=== PATIENT | male | born 1965 | race Caucasian/White ===

== ENCOUNTER 2025-04-09 10:58 | Inpatient (IN) ==
--- NOTE | 2025-04-09 11:22 | ED Physician Documentation ---
History of Present Illness Stated complaint Stated Complaint: HYPOTENTION Chief complaint Chief Complaint: Fever Additonal information Additional information: Patient is a 60-year-old male with history of HIV well-controlled on medication, hypertension, who presents to the ER due to fever and hypotension. Patient was diagnosed with epididymitis on the of this month, 6 days ago, and has been recovering well on Bactrim. He states that his testicular symptoms have gotten significantly better. However, yesterday he developed fever without other overt signs of infection. He was seen at urgent care this morning and was found to have a temperature of 104, and recommended to come to the ER for evaluation. He denies any headache, visual changes, cough, sore throat, denies any chest pain, chest pressure, shortness of breath, he denies any urination changes. He does endorse diarrhea over the last couple weeks, states that it is not bloody or dark. Was noted to have a systolic pressure in the upper 80s with diastolics in the upper 50s, at urgent care. This is consistent with what EMS found as well during transit. Review of Systems Status of ROS: See HPI Meds/Allgy Home Medications Ambulatory Orders Medication Instructions Recorded Confirmed hydrochlorothiazide 25 mg tablet 25 mg PO QAM 04/03/25 04/09/25 lisinopril 20 mg tablet 20 mg PO QDAY 04/03/2504/09 sulfamethoxazole 800 1 tab PO BID 10 days #20 tab s 04/03/25 04/09/25 mg-trimethoprim 160 mg tablet (Bactrim DS) amlodipine 10 mg tablet 10 mg PO QPM 04/09/25 ascorbic acid (vitamin C) 1,000 mg 1,000 mg PO DAILY 1 06/09/24 04/09/25 capsule atorvastatin 20 mg tablet 20 mg PO HS 04/09/25 5 bictegravir 50 mg-emtricitabine 1 tab PO QAM 04/09/25 04/09/25 200 mg-tenofovir alafenam 25 mg tablet (Biktarvy) chlorthalidone 12.5 mg tablet 12.5 mg PO QAM 04/09/25 04/09/25 (Hemiclor) darunavir 800 mg tablet 800 mg PO QAM 04/09/2504/09 doxazosin 2 mg tablet (Cardura) 2 mg PO QPM 04/09/25 1 06/09/24 famotidine 20 mg tablet 20 mg PO QAM AND QPM 5 04/09/25 furosemide 20 mg tablet 20 mg PO QAM 04/09/25 metoprolol succinate 50 mg capsule 100 mg PO QPM 04/0904/09/25 sprinkle, ext. release 24 hr metronidazole 0.75 % topical cream 1 applic topical BI D 04/09/25 04/09/25 multivitamin 1 tab PO DAILY 04/09/2503/16 Allergies Allergies Allergy/AdvReac Type Severity Reaction Status Date / Time No Known Drug Allergies Allergy Verified 04/09/25 11:00 [facility] Active Problems All Active Problems (Updated 04/09/25 @ 13:02 by Leobardo Wiggins DO) MIKE (acute kidney injury) (Acute) Hyperlipidemia (Chronic) Hypertension (Chronic) Sepsis (Acute) Epididymo-orchitis, acute (Acute) HIV (human immunodeficiency virus infection) (Chronic) Fever (Acute) Testicular swelling, right (Acute) Social History Social History Smoking Status: Never smoker Second hand tobacco smoke exposure: No Do you dip or chew tobacco?: No Do you vape?: No Living arrangement: At home Level: Independent Do you feel safe in your home environment?: Yes History of physical, verbal, emotional, or financial abuse?: No Substance Use: denies use POLST Patient has POLST: No Exam Exam Vital Signs: Vital Signs x48h Temp Pulse Resp BP Pulse Ox 04/09/25 12:15 76 17 115/63 96 04/09/25 11:25 73 17 97 04/09/25 11:05 17 04/09/25 11:00 37.0 C 74 22 88/53 L 99 Constitutional no apparent distress Resting comfortably, no acute distress. Nontoxic. HENMT normocephalic Eyes PERRL and conjunctivae normal Neck/C-Spine cervical full ROM noted, supple and no meningeal signs Respiratory breath sounds equal bilaterally, normal respiratory effort, clear to auscultation bilaterally and no wheezes No accessorry muscle use. Satting at 97% on RA. LCTAB. Cardiovascular normal heart rate noted, regular rhythm noted, no murmur and peripheral pulses 2+ throughout Gastrointestinal abdomen soft to palpation and nontender to palpation Genitourinary no CVA tenderness Back/Pelvis no thoracic spine tenderness and no lumbar spine tenderness Extremities normal to inspection Neurology log sorter II-XII intact, no movement abnormality noted, no focal motor deficit noted, no sensory deficits noted and GCS 15 Psychiatry mental status grossly normal and oriented x3 Skin skin color normal, no rash, no jaundice and no mottling Results Vitals Vitals: Vital Signs - 24 hr 04/09/25 11:00 04/09/25 11:05 04/09/25 11:25 Temperature 37.0 C Temperature Source Oral Pulse Rate 74 73 Respiratory Rate 22 17 17 Blood Pressure 88/53 L O2 Saturation 99 97 O2 Source Room air Room air Room air Pain Intensity 0 0 17 04/09/25 12:15 Temperature Temperature Source Pulse Rate 76 Respiratory Rate 17 Blood Pressure 115/63 O2 Saturation 96 O2 Source Room air Pain Intensity 0 Oxygen O2 Source Room air Labs Labs: Laboratory Tests 04/09/25 04/09/25 04/09/25 11:20 11:34 11:41 WBC 8.5 RBC 3.97 L Hgb 12.4 L Hct 38.4 L MCV 96.7 H MCH 31.2 H MCHC 32.3 RDW 12.9 Plt Count 176 MPV 9.6 Neut # (Auto) Not Reportable Lymph # (Auto) Not Reportable Garvin # (Auto) Not Reportable Eos # (Auto) Not Reportable Baso # (Auto) Not Reportable Absolute Nucleated RBC Not Reportable Total Counted 100 Band Neuts % (Manual) 15 H Abnorm Lymph % (Manual) 0 Metamyelocytes % 2 H Myelocytes % 1 H Nucleated RBC % Not Reportable Neutrophils # (Manual) 7.7 H Lymphocytes # (Manual) 0.3 L Monocytes # (Manual) 0.1 Eosinophils # (Manual) 0.3 Basophils # (Manual) 0.0 Differential Comment MANUAL DIFFERENTIAL WBC Morphology NORMAL APPEARANCE Platelet Estimate NORMAL (130-450,000) Platelet Morphology NORMAL APPEARANCE RBC Morph Micro Appear NORMAL APPEARANCE Sodium 131 L Potassium 4.8 H Chloride 104 Carbon Dioxide 20 L Anion Gap 7.0 BUN 39 H Creatinine 3.5 H Estimated GFR (MDRD) 18 L Glucose 108 H Lactic Acid 0.9 Calcium 8.1 L Total Bilirubin 0.4 AST 17 ALT 27 Alkaline Phosphatase 69 Troponin I High Sens 6.5 Total Protein 6.2 L Albumin 3.5 Globulin 2.7 Albumin/Globulin Ratio 1.3 Procalcitonin Immunoas 0.72 H Urine Color Urine Clarity Urine pH Ur Specific Wheeler Urine Protein Urine Glucose (UA) Urine Ketones Urine Occult Blood Urine Nitrite Urine Bilirubin Urine Urobilinogen Ur Leukocyte Esterase Ur Microscopic Review Urine Culture Comments U Random Total Protein Urine Creatinine Urine Sodium Nasal Adenovirus (PCR) NOT DETECTED Nasal B. parapertussis DNA (PCR) NOT DETECTED Nasal Coronavir 229E PCR NOT DETECTED Nasal Coronavir HKU1 PCR NOT DETECTED Nasal Coronavir NL63 PCR NOT DETECTED Nasal Coronavir OC43 PCR NOT DETECTED Nasal Enterovir/Rhinovir PCR NOT DETECTED Nasal Influenza B PCR NOT DETECTED Nasal Influenza A PCR NOT DETECTED Nasal Parainfluen 1 PCR NOT DETECTED Nasal Parainfluen 2 PCR NOT DETECTED Nasal Parainfluen 3 PCR NOT DETECTED Nasal Parainfluen 4 PCR NOT DETECTED Nasal RSV (PCR) NOT DETECTED Nasal B.pertussis DNA PCR NOT DETECTED Nasal C.pneumoniae (PCR) NOT DETECTED Greg Human Metapneumo PCR NOT DETECTED Nasal M.pneumoniae (PCR) NOT DETECTED Nasal SARS-CoV-2 (PCR) NOT DETECTED 04/09/25 12:07 WBC RBC Hgb Hct MCV MCH MCHC RDW Plt Count MPV Neut # (Auto) Lymph # (Auto) Garvin # (Auto) Eos # (Auto) Baso # (Auto) Absolute Nucleated RBC Total Counted Band Neuts % (Manual) Abnorm Lymph % (Manual) Metamyelocytes % Myelocytes % Nucleated RBC % Neutrophils # (Manual) Lymphocytes # (Manual) Monocytes # (Manual) Eosinophils # (Manual) Basophils # (Manual) Differential Comment WBC Morphology Platelet Estimate Platelet Morphology RBC Morph Micro Appear Sodium Potassium Chloride Carbon Dioxide Anion Gap BUN Creatinine Estimated GFR (MDRD) Glucose Lactic Acid Calcium Total Bilirubin AST ALT Alkaline Phosphatase Troponin I High Sens Total Protein Albumin Globulin Albumin/Globulin Ratio Procalcitonin Immunoas Urine Color YELLOW Urine Clarity CLEAR Urine pH 6.0 Ur Specific Wheeler 1.020 Urine Protein TRACE Urine Glucose (UA) NEGATIVE Urine Ketones NEGATIVE Urine Occult Blood NEGATIVE Urine Nitrite NEGATIVE Urine Bilirubin NEGATIVE Urine Urobilinogen 0.2 (NORMAL) Ur Leukocyte Esterase NEGATIVE Ur Microscopic Review NOT INDICATED Urine Culture Comments NOT INDICATED U Random Total Protein 36 Urine Creatinine 99.8 Urine Sodium 74.5 Nasal Adenovirus (PCR) Nasal B. parapertussis DNA (PCR) Nasal Coronavir 229E PCR Nasal Coronavir HKU1 PCR Nasal Coronavir NL63 PCR Nasal Coronavir OC43 PCR Nasal Enterovir/Rhinovir PCR Nasal Influenza B PCR Nasal Influenza A PCR Nasal Parainfluen 1 PCR Nasal Parainfluen 2 PCR Nasal Parainfluen 3 PCR Nasal Parainfluen 4 PCR Nasal RSV (PCR) Nasal B.pertussis DNA PCR Nasal C.pneumoniae (PCR) Greg Human Metapneumo PCR Nasal M.pneumoniae (PCR) Nasal SARS-CoV-2 (PCR) PD Medical Decision Making ED course ED course: Assessment: Patient is a 60 year old male with history of HIV on triple therapy who presents with fever, low blood pressure. Was diagnosed with epididymitis last week and started on Bactrim. He was seen this morning due to fever at urgent care who recommended he come to the ER for evaluation. On arrival e has a blood pressure of mid 80s over upper 50s. Afebrile after taking Tylenol this morning. He denies any other symptoms of concern. Differential: Includes but is not limited to, sepsis, septic shock, UTI, STI, uro sepsis, pneumonia, viral gastrointestinal illness, colitis, bacteremia, etcetera. Workup: CBC that demonstrates mild anemia with a hemoglobin of 12.4. CMP with the sodium of 131, potassium 4.8. BUN of 39. Creatinine is markedly elevated to 3.5 from previous of 1.6. Respiratory panel, urinalysis, and Clostridium difficile testing unremarkable. Chest X-ray shows no acute cardio pulmonary process. EKG per my read: sinus rhythm, regular intervals, normal access, no malignant ST segment changes. Treatment: cefepime, 2 liters IV fluids Discussion: Patient s symptoms are consistent with sepsis versus septic shock, likely septic shock, given his hypotension on arrival. Unclear at this time what is driving his infection. Infectious workup so far unremarkable. He does not have a corresponding white count. However, I don't have a compelling reason yet for his fever. Blood cultures were pending by the time this patient left the ER. Most notably however is his significantly elevated creatinine. He did have good response to two liters of IV fluids, and afterward maintained normal blood pressures while in the ED. Apart from his recent epididymitis, patient denies any other symptoms of illness apart from the fever. I discussed this presentation with hospitalist who will admit him to the hospital for further workup and management. Discharge Plan Discharge Patient Disposition: 64 [facility] DC/Xfer Condition: Good Clinical Impression: Sepsis Interventions: ED Admission Assessment Last Done: 04/09/25 12:23 Vitals documented within 30 minutes of discharge?: Yes
[2025-04-09 11:57] LABS: HCT - HEMATOCRIT 38.4 % (42.0-52.0); HGB - HEMOGLOBIN 12.4 g/dL (14.0-18.0); MEAN PLATELET VOLUME 9.6 fL (7.4-11.4); PLT - PLATELET COUNT 176 10^3/uL (130-450); RED CELL DISTRIBUTION WIDTH 12.9 % (12.0-15.0)
[2025-04-09 11:58] LABS: ABNORMAL LYMPHS % (MANUAL) 0 %; BASOPHILS # (MANUAL) 0.0 10^3/uL (0-0.1)
[2025-04-09 12:07] LABS: ALT ALANINE AMINOTRANSFERASE 27.0 IU/L (10-60); AST ASPARTATE AMINOTRANSFERASE 17.0 IU/L (10-42); BUN - BLOOD UREA NITROGEN 39.0 mg/dL (6-20); CARBON DIOXIDE - CO2 20.0 mmol/L (21-32); CREATININE 3.5 mg/dL (0.6-1.3); GFR - MDRD 18.0 (>89)
[2025-04-09 12:16] LABS: OCCULT BLOOD,URINE NEGATIVE (NEGATIVE)
[2025-04-09 12:17] LABS: GLUCOSE, URINE (UA) NEGATIVE (NEGATIVE); KETONES,URINE (UA) NEGATIVE (NEGATIVE)
[2025-04-09 12:21] LABS: BAND NEUTROPHILS % (MANUAL) 15 %; EOSINOPHILS # (MANUAL) 0.3 10^3/uL (0-0.7); LYMPHOCYTES # (MANUAL) 0.3 10^3/uL (1.5-3.5); LYMPHOCYTES % (MANUAL) 3 %; METAMYELOCYTES % (MANUAL) 2 %; MONOCYTES # (MANUAL) 0.1 10^3/uL (0.0-1.0); MYELOCYTES % (MANUAL) 1 %; NEUTROPHILS # (MANUAL) 7.7 10^3/uL (1.5-6.6)
[2025-04-09] MEDS ORDERED: CEFEPIME 2 GM in SODIUM CHLORIDE 0.9% MINIBAG 100 ML IV STA (12:21)
[2025-04-09 12:22] LABS: PLATELET ESTIMATE, MANUAL NORMAL (130-450,000) (NORMAL); PLATELET MORPHOLOGY NORMAL APPEARANCE (NORMAL); RBC MORPHOLOGY (MULTIPLE) NORMAL APPEARANCE (NORMAL); WBC MORPHOLOGY (MULTIPLE) NORMAL APPEARANCE (NORMAL)
--- NOTE | 2025-04-09 12:23 | XRAY Report ---
PROCEDURE: XR Chest 1V INDICATIONS: potential pna TECHNIQUE: One view of the chest was acquired. COMPARISON: None. FINDINGS: Surgical changes and devices: None. Lungs and pleura: No pleural effusions or pneumothorax. No consolidation. Mediastinum: Mediastinal contours appear normal. Heart size is normal. Bones and chest wall: No suspicious bony lesions. Overlying soft tissues appear unremarkable. IMPRESSION: No acute cardiopulmonary process. Reviewed by: Ugo Leonard MD on 04/09/2025 12:19 PM PST Approved by: Ugo Leonard MD on 04/09/2025 12:19 PM PST Station ID: [id number]
[2025-04-09 12:26] LABS: B. PARAPERTUSSIS- RESP PCR PAN NOT DETECTED; B. PERTUSSIS- RESP PCR PANEL NOT DETECTED; C. PNEUMONIAE- RESP PCR PANEL NOT DETECTED; CORONAVIRUS 229E-RESP PCR NOT DETECTED; CORONAVIRUS HKU1-RESP PCR NOT DETECTED; CORONAVIRUS NL63-RESP PCR NOT DETECTED; CORONAVIRUS OC43-RESP PCR NOT DETECTED; HUMAN METAPNEUMOVIRUS NOT DETECTED; INFLUENZA A- RESP PCR PANEL NOT DETECTED; INFLUENZA B - RESP PCR PANEL NOT DETECTED; M. PNEUMONIAE- RESP PCR PANEL NOT DETECTED; PARAINFLUENZA VIRUS 1 NOT DETECTED; PARAINFLUENZA VIRUS 2 NOT DETECTED; PARAINFLUENZA VIRUS 4 NOT DETECTED; RHINOVIRUS/ENTEROVIRUS NOT DETECTED; RSV- RESP PCR PANEL NOT DETECTED; SARS-CoV-2 -RESP PCR PANEL NOT DETECTED
[2025-04-09] MEDS: CEFEPIME 2 GM VIAL IVP STA (12:41)
--- NOTE | 2025-04-09 12:47 | HISTORY & PHYSICAL EXAMINATION ---
Chief Complaint Chief Complaint Chief Complaint: Fever History of Present Illness Admitted From Admitted From:: ED History Obtained From Records Reviewed: [facility] History obtained from: EMR, Patient, ED Provider History of Present Illness HPI Comment/Other: The patient is a 60-year-old male with past medical history notable for HIV on HAART, HTN, HLD who presented with fever on antibiotics and hypotension. He was initially diagnosed with or orchio-epididymitis on 04/03 at urgent care. He was treated with IM Rocephin, returned and was transition to Bactrim. He states his symptoms have gotten significantly better. Specifically he had swelling in his left testicle that is improved. Throughout this time, he has been having intermittent low-grade fevers. Worse on the day prior to admission. He recorded a fever at home up to 104. He did have an episode of diarrhea on the day of admission. He endorses rigors, the most recent on 04/08. Shaking chills at home. Otherwise denies chest pain, dyspnea, abdominal pain, nausea or vomiting. In the ED, he presented initially with a blood pressure of 80/53. Not tachycardic. He reports that he did take his blood pressure medicines on the day of admission. He was found to have a notably normal white count, down from 18.7 on 04/03. He does have a left shift with 15% bands. Potassium 4.8, creatinine presumably normal at baseline was 1.6 on 04/03, increased 3.5. BUN 39. PCL 0.72. BG 108. Viral respiratory panel was negative. Urinalysis not suggestive of infection. Patient has not given much thought to his CODE STATUS previously. He is never filled out a POLST form. He does think that he would elect for pursuing resuscitative efforts if his heart were to stop. He is full code full treatment, but wishes to further consider. His surrogate decision maker is his Preston, Preston's numbers in the chart. Preston is also his legal surrogate decision maker by [place] state law. Meds/Allgy Home Medications Ambulatory Orders Medication Instructions Recorded Confirmed atorvastatin 40 mg tablet (Lipitor) 40 mg PO QDAY 03/1604/09/25 hydrochlorothiazide 25 mg tablet 25 mg PO QAM 04/03/25 04/09/25 lisinopril 20 mg tablet 20 mg PO QDAY 04/03/2504/09 sulfamethoxazole 800 1 tab PO BID 10 days #20 tab s 04/03/25 04/09/25 mg-trimethoprim 160 mg tablet (Bactrim DS) bictegravir 50 mg-emtricitabine 1 tab PO QDAY 04/09/25 04/09/25 200 mg-tenofovir alafenam 25 mg tablet (Biktarvy) chlorthalidone 12.5 mg tablet 12.5 mg PO QDAY 04/09/25 04/09/25 (Hemiclor) darunavir 800 mg tablet 800 mg PO QDAY 04/09/2503/16 doxazosin 2 mg tablet (Cardura) 2 mg PO QDAY 04/09/25 04/09/25 famotidine 20 mg tablet 20 mg PO QDAY 04/09/2504/09 metoprolol succinate 50 mg capsule 50 mg PO QDAY 04/0904/09/25 sprinkle, ext. release 24 hr Allergies Allergies Allergy/AdvReac Type Severity Reaction Status Date / Time No Known Drug Allergies Allergy Verified 04/09/25 11:00 PFSH Active Problems All Active Problems (Updated 04/09/25 @ 13:02 by Leobardo Wiggins DO) MIKE (acute kidney injury) (Acute) Hyperlipidemia (Chronic) Hypertension (Chronic) Sepsis (Acute) Epididymo-orchitis, acute (Acute) HIV (human immunodeficiency virus infection) (Chronic) Fever (Acute) Testicular swelling, right (Acute) Social History Social History Smoking Status: Never smoker Second hand tobacco smoke exposure: No Do you dip or chew tobacco?: No Do you vape?: No Living arrangement: At home Level: Independent Do you feel safe in your home environment?: Yes History of physical, verbal, emotional, or financial abuse?: No Substance Use: denies use POLST Patient has POLST: No POLST CPR Status: Attempt Resuscitation (CPR) Level of Medical Intervention: Full Treatment Review of Systems Status of ROS: 10 or more systems reviewed and unremarkable except as noted in history and below Exam Exam Vital Signs: Vital Signs x48h Temp Pulse Resp BP Pulse Ox 04/09/25 12:36 77 20 109/55 L 97 04/09/25 12:23 17 04/09/25 12:15 76 17 115/63 96 04/09/25 11:25 73 17 97 04/09/25 11:05 17 04/09/25 11:00 37.0 C 74 22 88/53 L 99 GEN: No acute distress HEENT: NC/AT, normal appearance of external ears and nose. Hearing baseline. Cardiac: Regular rate and rhythm, no murmurs. Generally euvolemic on exam. Pulm: Lungs CTA bilaterally, no cough, no wheezes. No adventitial lung sounds. Normal effort on room air. Abdomen: Obese, soft, nontender, nondistended. No rebound or guarding Extremities: Moves all 4 extremities equally. Normal tone. Neuro: Face symmetric, CN II through XII intact grossly. Speech fluent. Moves all extremities. No focal deficits. Psych: Mood euthymic. Affect congruent. Reasonable historian. Sepsis Event Note (H) Evaluation Current Stage of Sepsis: Severe sepsis Possible source of Sepsis: positive Genitourinary Sepsis Criteria Sepsis Criteria: Recorded Temperature greater than 38.3C or Less than 36C, WBC count greater than 10% bands, MAP less than 65 mmHg and Renal: urine output less than 0.5ml/kg/hr for 2 hours or creatinine gr Conclusion/Plan Problem List (1) Sepsis: (2) Epididymo-orchitis, acute: Plan: Patient is currently being treated for right-sided epididymitis in the community. Symptoms started around 04/01, he sought treatment as of 04/03 He has been started initially on 1 g Rocephin and Toradol in the community. Additionally received a dose of prednisone. He was prescribed Bactrim on 04/03, and started taking at that day. He slowly started to improve on this. The swelling in his testicle improved. Around the onset of his symptoms initially, he was having some low-grade fevers 100-102. These have been responsive to Tylenol. He began having shaking chills and fever up to 104 immediately prior to admission. On admission he was found to have blood pressure of 88/53. This recovered with fluids. He is not fevered here. His leukocytosis is normalized since his initial presentation at the walk-in clinic, but he still has 15% bands. This as well as his attendant MIKE is suggestive of sepsis by sepsis 3 criteria. Most likely etiology uses known epididymoorchitis, but with his diarrhea, and recent antibiotics exposure, cannot rule out C. difficile. He is HIV positive and MSM. There is no modifications to epididymitis treatment for immunocompromise patients, but MSM patients should receive ceftriaxone and Levaquin. - I discussed with the ED provider, Dr. Finn, and have elected to admit this patient to inpatient status - Starting on daily ceftriaxone 2 g daily and levofloxacin 500 mg daily - Defer further fluids, normal lactate, normal cap refill o Regular diet - Monitor vitals every 4 hours - Blood cultures, urine cultures drawn in the ED - Stool sample pending including C. difficile (3) MIKE (acute kidney injury): Plan: Unclear what the patient's baseline creatinine is, but presumably normal. He was seen in the walk-in clinic on 04/03 with a creatinine of 1.6. 3.5 on admission. He has been ill as above. He has been receiving Bactrim. He received a dose of Toradol at the walk-in clinic. Any of this could have exacerbated his renal function. - Fluids in the ED, defer further as above - Will get urine sodium, creatinine, spot protein - Encourage oral hydration - Will follow-up BMP a.m. 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 Recently saw his ID doctor in February. No concerns from their perspective. Undetectable by report. Follows with Dr. Kapil Jimenez. - Should continue his Biktarvy and darunavir while in house, he has these medications with him - At risk for opportunistic infections, will be vigilant to monitoring his sepsis as above (5) Hypertension: Plan: Given his hypotension on admission, and septic presentation, we will hold his antihypertensives at this time. By report, he is on hydrochlorothiazide 25 mg, lisinopril 20 mg, metoprolol 50 mg daily Hold MANAGEMENT INTERN antihypertensives (6) Hyperlipidemia: Plan: Patient is reportedly on atorvastatin 40 mg for primary prevention. Proteus inhibitors and statins can interact. This typically raises the risk of side effects from the statin. Patient denies any symptoms of myopathies. Typically recommended to limit dose of atorvastatin to 20 mg if needed. - Will hold statin for now - Reasonable to resume if he has no myopathies at baseline Plan I spent a total of 61 minutes in the care of this patient today. This time was spent reviewing labs, vital signs, imaging, interviewing and examining the patient, and discussing plan of care with them and their other care providers. Patient is facing 2 acute condition which poses risk to life and bodily function (sepsis and MIKE). Discussion was had with the ED provider. Information reviewed as above. Decision was made to admit the patient to inpatient service. [id number] Lab Results 04/09/25 11:34 04/09/25 11:34
[2025-04-09] MEDS ORDERED: ONDANSETRON ODT 4 MG TABLET TL PRN (12:57)
[2025-04-09] MEDS ORDERED: ONDANSETRON 4 MG/2 ML VIAL IVP PRN (12:57)
[2025-04-09] MEDS ORDERED: SODIUM CHLORIDE FLUSH 0.9% 10 ML SYRINGE IVP PRN (12:57)
[2025-04-09] MEDS ORDERED: oxyCODONE 5 MG TABLET PO PRN ×2 (12:57)
[2025-04-09] MEDS: ACETAMINOPHEN 325 MG TABLET PO PRN (14:16)
[2025-04-09 14:33] LABS: TOTAL PROTEIN,URINE RANDOM 36.0 mg/dL
[2025-04-09] MEDS: SODIUM CHLORIDE FLUSH 0.9% 10 ML SYRINGE IVP SCH (16:21)
[2025-04-09] MEDS: FAMOTIDINE 20 MG TABLET PO SCH (17:30)
--- NOTE | 2025-04-09 18:40 | PHARMACY PROGRESS NOTE ---
Best Possible Medication History Admit Date and Time: 04/09/25 1217 Home Medications Medication Instructions Recorded Confirmed Type hydrochlorothiazide 25 mg tablet 25 mg PO QAM 04/03/25 04/09/25 History lisinopril 20 mg tablet 20 mg PO QDAY 04/03/2504/09 History sulfamethoxazole 800 1 tab PO BID 10 days #20 tab s 04/03/25 04/09/25 Rx mg-trimethoprim 160 mg tablet (Bactrim DS) amlodipine 10 mg tablet 10 mg PO QPM 04/09/25 History ascorbic acid (vitamin C) 1,000 mg 1,000 mg PO DAILY 1 06/09/24 04/09/25 History capsule atorvastatin 20 mg tablet 20 mg PO HS 04/09/25 5 History bictegravir 50 mg-emtricitabine 1 tab PO QAM 04/09/25 04/09/25 History 200 mg-tenofovir alafenam 25 mg tablet (Biktarvy) chlorthalidone 12.5 mg tablet 12.5 mg PO QAM 04/09/25 04/09/25 History (Hemiclor) darunavir 800 mg tablet 800 mg PO QAM 04/09/2504/09 History doxazosin 2 mg tablet (Cardura) 2 mg PO QPM 04/09/25 1 06/09/24 History famotidine 20 mg tablet 20 mg PO QAM AND QPM 5 04/09/25 History furosemide 20 mg tablet 20 mg PO QAM 04/09/25 History metoprolol succinate 50 mg capsule 100 mg PO QPM 04/0904/09/25 History sprinkle, ext. release 24 hr metronidazole 0.75 % topical cream 1 applic topical BI D 04/09/25 04/09/25 History multivitamin 1 tab PO DAILY 04/09/2503/16 History Processed by: Pharmacy Medications reviewed in ED?: No Medication History completed: Yes Patient Interview: Completed Secondary Source(s): Prescription bottles and Pharmacy records [facility] Statement: As the person ultimately responsible for medication therapy, providers are able to order a medication from an existing home medication list in [facility] via the "Reconcile Routine" prior to Confirmation of that medication by technical support specialist. Such practice is discouraged except when the physician, in their clinical judgment, deems that a medical need exists for a medication without regard to previous use.
[2025-04-09] MEDS: HEPARIN 5,000 UNIT/ML VIAL SUBQ SCH (20:59)
[2025-04-10 07:09] LABS: ADENOVIRUS F 40/41 Not Detected (Not Detected); ASTROVIRUS Not Detected (Not Detected); C DIFFICILE TOXIN A/B Not Detected (Not Detected); CAMPYLOBACTER Not Detected (Not Detected); CRYPTOSPORIDIUM Not Detected (Not Detected); CYCLOSPORA CAYETANENSIS Not Detected (Not Detected); ENTAMOEBA HISTOLYTICA Not Detected (Not Detected); ENTEROAGGREGATIVE E COLI Not Detected (Not Detected); ENTEROPATHOGENIC E COLI Not Detected (Not Detected); ENTEROTOXIGENIC E COLI Not Detected (Not Detected); GIARDIA LAMBLIA Not Detected (Not Detected); NOROVIRUS GI/GII Not Detected (Not Detected); PLESIOMONAS SHIGELLOIDES Not Detected (Not Detected); ROTAVIRUS A Not Detected (Not Detected); SALMONELLA Not Detected (Not Detected); SAPOVIRUS Not Detected (Not Detected); SHIGA-TOXIN-PRODUCING E COLI Not Detected (Not Detected); SHIGELLA/ENTEROINVASIVE E COLI Not Detected (Not Detected); VIBRIO Not Detected (Not Detected); VIBRIO CHOLERAE Not Detected (Not Detected); YERSINIA ENTEROCOLITICA Not Detected (Not Detected)
--- NOTE | 2025-04-10 07:44 | PROVIDER PROGRESS NOTE ---
Subjective Prog Note Date Prog Note Date: 04/10/25 Prog Note Time: 07:43 Subjective Subjective: No acute events overnight. Patient had a bowel movement. Stool cultures are unremarkable. He is doing reasonably well. Vital signs remained stable. Tmax overnight yesterday was 39.4 last evening. His fever curve is downtrending. He is not tachycardic. His BP has remained stable. Labs from this morning reveal that his MIKE is effectively unchanged. Creatinine trend 3.5-3.2. No leukocytosis. Bands of increased from 15% to 34%. His hemoglobin is stable. Cultures from yesterday have not yet matured. In review of his cultures, he had a urine culture from 04/03 which was positive for pansensitive E. Extended viral respiratory panel was negative. Extended stool panel PCR was negative.coli. Patient says he is feeling reasonably well this morning. Denies any fever-like symptoms. Denies any chills. Denies any chest pain, dyspnea, abdominal pain, nausea or vomiting. Continues to have frequent loose stools. Current Medications Current Medications Current Medications: Current Medications Generic Name Dose Route Start Last Admin Trade Name Freq PRN Reason Stop Dose Admin Acetaminophen 650 mg 04/09/25 12:57 04/10/25 01:06 Acetaminophen 325 Mg Tablet PO 650 mg Q4HR PRN Administration Pain 1 to 4, or Fever Famotidine 20 mg 04/09/25 17:30 04/10/25 06:48 Famotidine 20 Mg Tablet PO 20 mg BIDAC YAJAIRA Administration Heparin Sodium (Porcine) 5,000 unit 04/09/25 21:00 04/09/25 20:59 Heparin 5,000 Unit/Ml Vial SUBQ 5,000 unit BID YAJAIRA Administration Ceftriaxone Sodium 2 gm/ 100 mls @ 200 mls/hr 04/10/25 09:00 Sodium Chloride IV DAILY YAJAIRA Levofloxacin 250 mg 04/10/25 09:00 Levofloxacin 250 Mg Tablet PO DAILY YAJAIRA Ondansetron HCl 4 mg 04/09/25 12:57 Ondansetron Odt 4 Mg Tablet TL Q6HR PRN Nausea / Vomiting Ondansetron HCl 4 mg 04/09/25 12:57 Ondansetron 4 Mg/2 Ml Vial IVP Q6HR PRN Nausea / Vomiting Oxycodone HCl 5 mg 04/09/25 12:57 Oxycodone 5 Mg Tablet PO Q4HR PRN Pain 5 to 7 Oxycodone HCl 10 mg 04/09/25 12:57 Oxycodone 5 Mg Tablet PO Q4HR PRN Pain 8 to 10 Patient Own Med: 1 each 04/10/25 08:00 Bictegrav-Emtricit- PO Tenofov Ala [ 0800 [facility] Biktarvy] 50-200-25 Mg Tablet Patient Own Med: 1 each 04/10/25 08:00 Darunavir 800 Mg PO Tablet QDBREAKFAST [facility] Saccharomyces Boulardii 500 mg 04/10/25 08:00 Saccharomyces Boulardii 250 Mg Capsule PO BIDWM [facility] Sodium Chloride 10 ml 04/09/25 12:57 Sodium Chloride Flush 0.9% 10 Ml Syringe IVP PRN PRN NEEDED PER PROVIDER ORDERS Sodium Chloride 10 ml 04/09/25 17:00 04/10/25 00:38 Sodium Chloride Flush 0.9% 10 Ml Syringe IVP 10 ml 0100,0900,1700 [facility] Administration Objective Vital Signs/Intake & Output Reviewed Vital Signs: Yes Vital Signs: Vital Signs x48h Temp Pulse Resp BP BP Pulse Ox 04/10/25 05:03 37.2 C 86 20 112/47 L 96 04/10/25 02:42 37.5 C 04/10/25 01:59 37.7 C 04/10/25 01:57 37.7 C 04/10/25 00:47 38.1 C H 97 20 99/49 L 94 Intake & Output: Intake & Output 04/07/25 04/08/25 04/09/25 04/10/25 23:59 23:59 23:59 23:59 Intake Total 480 / 480 700 / 700 Output Total 150 / 150 Balance 480 / 480 550 / 550 Weight (kg) 87.5 kg Objective Comments/Other: GEN: No acute distress HEENT: NC/AT, normal appearance of external ears and nose. Hearing baseline. Cardiac: Regular rate and rhythm, no murmurs. Generally euvolemic on exam. Pulm: Lungs CTA bilaterally, no cough, no wheezes. No adventitial lung sounds. Normal effort on room air. Abdomen: Obese, soft, nontender, nondistended. No rebound or guarding Extremities: Moves all 4 extremities equally. Normal tone. Neuro: Face symmetric, CN II through XII intact grossly. Speech fluent. Moves all extremities. No focal deficits. Psych: Mood euthymic. Affect congruent. Reasonable historian. Lab Results 04/10/25 08:31 04/10/25 08:31 Other Labs: Lab Results x24hrs 04/09/25 04/09/25 04/09/25 Range/Units 16:20 12:07 11:41 WBC (4.8-10.8) x10^3/uL RBC (4.70-6.10) 10^6/uL Hgb (14.0-18.0) g/dL Hct (42.0-52.0) % MCV (80.0-94.0) fL MCH (27.0-31.0) pg MCHC (32.0-36.0) g/dL RDW (12.0-15.0) % Plt Count (130-450) 10^3/uL MPV (7.4-11.4) fL Neut # (Auto) Lymph # (Auto) [place] # (Auto) Eos # (Auto) Baso # (Auto) Absolute Nucleated RBC Total Counted Band Neuts % (Manual) (0 - 10) % Abnorm Lymph % (Manual) % Metamyelocytes % ( - 0) % Myelocytes % ( - 0) % Nucleated RBC % Neutrophils # (Manual) (1.5-6.6) 10^3/uL Lymphocytes # (Manual) (1.5-3.5) 10^3/uL Monocytes # (Manual) (0.0-1.0) 10^3/uL Eosinophils # (Manual) (0-0.7) 10^3/uL Basophils # (Manual) (0-0.1) 10^3/uL Differential Comment WBC Morphology (NORMAL) Platelet Estimate (NORMAL) Platelet Morphology (NORMAL) RBC Morph Micro Appear (NORMAL) Sodium (135-145) mmol/L Potassium (3.5-4.5) mmol/L Chloride (101-111) mmol/L Carbon Dioxide (21-32) mmol/L Anion Gap (6-13) BUN (6-20) mg/dL Creatinine (0.6-1.3) mg/dL Estimated GFR (MDRD) (>89) Glucose (74-104) mg/dL Lactic Acid (0.5-2.2) mmol/L Calcium (8.5-10.3) mg/dL Total Bilirubin (0.2-1.0) mg/dL AST (10-42) IU/L ALT (10-60) IU/L Alkaline Phosphatase (42-121) IU/L Troponin I High Sens (2.3-19.7) ng/L Total Protein (6.4-8.9) g/dL Albumin (3.2-5.5) g/dL Globulin (2.1-4.2) g/dL Albumin/Globulin Ratio (1.0-2.2) Procalcitonin Immunoas 0.72 H (<0.5) ng/mL Urine Color YELLOW Urine Clarity CLEAR (CLEAR) Urine pH 6.0 (5.0-7.5) PH Ur Specific [place] 1.020 (1.002-1.030) Urine Protein TRACE (NEGATIVE) mg/dL Urine Glucose (UA) NEGATIVE (NEGATIVE) mg/dL Urine Ketones NEGATIVE (NEGATIVE) mg/dL Urine Occult Blood NEGATIVE (NEGATIVE) Urine Nitrite NEGATIVE (NEGATIVE) Urine Bilirubin NEGATIVE (NEGATIVE) Urine Urobilinogen 0.2 (NORMAL) (NORMAL) E.U./dL Ur Leukocyte Esterase NEGATIVE (NEGATIVE) Ur Microscopic Review NOT INDICATED Urine Culture Comments NOT INDICATED U Random Total Protein 36 mg/dL Urine Creatinine 99.8 mg/dL Urine Sodium 74.5 mmol/L Nasal Adenovirus (PCR) Nasal B. parapertussis DNA (PCR) Nasal Coronavir 229E PCR Nasal Coronavir HKU1 PCR Nasal Coronavir NL63 PCR Nasal Coronavir OC43 PCR Nasal Enterovir/Rhinovir PCR Nasal Influenza B PCR Nasal Influenza A PCR Nasal Parainfluen 1 PCR Nasal Parainfluen 2 PCR Nasal Parainfluen 3 PCR Nasal Parainfluen 4 PCR Nasal RSV (PCR) Nasal B.pertussis DNA PCR Nasal C.pneumoniae (PCR) Greg Human Metapneumo PCR Nasal M.pneumoniae (PCR) Nasal SARS-CoV-2 (PCR) Stl C. cayetanensis PCR Not Detected (Not Detected) Stool Rotavirus A PCR Not Detected (Not Detected) Stl Adenov F 40/41 PCR Not Detected (Not Detected) Stool Astrovirus (PCR) Not Detected (Not Detected) Stool Campylobacter PCR Not Detected (Not Detected) Stl C. diff Tox B Gene NEGATIVE (NEGATIVE) Stl C. diff Tox A/B PCR Not Detected (Not Detected) Stool Cryptosporidium PCR Not Detected (Not Detected) Stl Sh Tox Pr E STEC PCR Not Detected (Not Detected) Stool E coli O157 PCR Not applicable (Not Detected) Stl Enterotoxigenic E PCR Not Detected (Not Detected) Stool EPEC (PCR) Not Detected (Not Detected) Stl E. histolytica PCR Not Detected (Not Detected) Stool Giardia Lamblia PCR Not Detected (Not Detected) Stl P. shigelloides PCR Not Detected (Not Detected) Stool Salmonella PCR Not Detected (Not Detected) Stool Sapovirus (PCR) Not Detected (Not Detected) Stl Shigella/EIEC PCR Not Detected (Not Detected) St Y.enterocolitica PCR Not Detected (Not Detected) Stool Vibrio (PCR) Not Detected (Not Detected) Stl Vibrio cholerae PCR Not Detected (Not Detected) Stl Enteroaggr Ecoli PCR Not Detected (Not Detected) Stl Norovirus GI/GII PCR Not Detected (Not Detected) 04/09/25 04/09/25 Range/Units 11:34 11:20 WBC 8.5 (4.8-10.8) x10^3/uL RBC 3.97 L (4.70-6.10) 10^6/uL Hgb 12.4 L (14.0-18.0) g/dL Hct 38.4 L (42.0-52.0) % MCV 96.7 H (80.0-94.0) fL MCH 31.2 H (27.0-31.0) pg MCHC 32.3 (32.0-36.0) g/dL RDW 12.9 (12.0-15.0) % Plt Count 176 (130-450) 10^3/uL MPV 9.6 (7.4-11.4) fL Neut # (Auto) Not Reportable Lymph # (Auto) Not Reportable [place] # (Auto) Not Reportable Eos # (Auto) Not Reportable Baso # (Auto) Not Reportable Absolute Nucleated RBC Not Reportable Total Counted 100 Band Neuts % (Manual) 15 H (0 - 10) % Abnorm Lymph % (Manual) 0 % Metamyelocytes % 2 H ( - 0) % Myelocytes % 1 H ( - 0) % Nucleated RBC % Not Reportable Neutrophils # (Manual) 7.7 H (1.5-6.6) 10^3/uL Lymphocytes # (Manual) 0.3 L (1.5-3.5) 10^3/uL Monocytes # (Manual) 0.1 (0.0-1.0) 10^3/uL Eosinophils # (Manual) 0.3 (0-0.7) 10^3/uL Basophils # (Manual) 0.0 (0-0.1) 10^3/uL Differential Comment MANUAL DIFFERENTIAL WBC Morphology NORMAL APPEARANCE (NORMAL) Platelet Estimate NORMAL (130-450,000) (NORMAL) Platelet Morphology NORMAL APPEARANCE (NORMAL) RBC Morph Micro Appear NORMAL APPEARANCE (NORMAL) Sodium 131 L (135-145) mmol/L Potassium 4.8 H (3.5-4.5) mmol/L Chloride 104 (101-111) mmol/L Carbon Dioxide 20 L (21-32) mmol/L Anion Gap 7.0 (6-13) BUN 39 H (6-20) mg/dL Creatinine 3.5 H (0.6-1.3) mg/dL Estimated GFR (MDRD) 18 L (>89) Glucose 108 H (74-104) mg/dL Lactic Acid 0.9 (0.5-2.2) mmol/L Calcium 8.1 L (8.5-10.3) mg/dL Total Bilirubin 0.4 (0.2-1.0) mg/dL AST 17 (10-42) IU/L ALT 27 (10-60) IU/L Alkaline Phosphatase 69 (42-121) IU/L Troponin I High Sens 6.5 (2.3-19.7) ng/L Total Protein 6.2 L (6.4-8.9) g/dL Albumin 3.5 (3.2-5.5) g/dL Globulin 2.7 (2.1-4.2) g/dL Albumin/Globulin Ratio 1.3 (1.0-2.2) Procalcitonin Immunoas (<0.5) ng/mL Urine Color Urine Clarity (CLEAR) Urine pH (5.0-7.5) PH Ur Specific [place] (1.002-1.030) Urine Protein (NEGATIVE) mg/dL Urine Glucose (UA) (NEGATIVE) mg/dL Urine Ketones (NEGATIVE) mg/dL Urine Occult Blood (NEGATIVE) Urine Nitrite (NEGATIVE) Urine Bilirubin (NEGATIVE) Urine Urobilinogen (NORMAL) E.U./dL Ur Leukocyte Esterase (NEGATIVE) Ur Microscopic Review Urine Culture Comments U Random Total Protein mg/dL Urine Creatinine mg/dL Urine Sodium mmol/L Nasal Adenovirus (PCR) NOT DETECTED Nasal B. parapertussis DNA (PCR) NOT DETECTED Nasal Coronavir 229E PCR NOT DETECTED Nasal Coronavir HKU1 PCR NOT DETECTED Nasal Coronavir NL63 PCR NOT DETECTED Nasal Coronavir OC43 PCR NOT DETECTED Nasal Enterovir/Rhinovir PCR NOT DETECTED Nasal Influenza B PCR NOT DETECTED Nasal Influenza A PCR NOT DETECTED Nasal Parainfluen 1 PCR NOT DETECTED Nasal Parainfluen 2 PCR NOT DETECTED Nasal Parainfluen 3 PCR NOT DETECTED Nasal Parainfluen 4 PCR NOT DETECTED Nasal RSV (PCR) NOT DETECTED Nasal B.pertussis DNA PCR NOT DETECTED Nasal C.pneumoniae (PCR) NOT DETECTED Greg Human Metapneumo PCR NOT DETECTED Nasal M.pneumoniae (PCR) NOT DETECTED Nasal SARS-CoV-2 (PCR) NOT DETECTED Stl C. cayetanensis PCR (Not Detected) Stool Rotavirus A PCR (Not Detected) Stl Adenov F 40/41 PCR (Not Detected) Stool Astrovirus (PCR) (Not Detected) Stool Campylobacter PCR (Not Detected) Stl C. diff Tox B Gene (NEGATIVE) Stl C. diff Tox A/B PCR (Not Detected) Stool Cryptosporidium PCR (Not Detected) Stl Sh Tox Pr E STEC PCR (Not Detected) Stool E coli O157 PCR (Not Detected) Stl Enterotoxigenic E PCR (Not Detected) Stool EPEC (PCR) (Not Detected) Stl E. histolytica PCR (Not Detected) Stool Giardia Lamblia PCR (Not Detected) Stl P. shigelloides PCR (Not Detected) Stool Salmonella PCR (Not Detected) Stool Sapovirus (PCR) (Not Detected) Stl Shigella/EIEC PCR (Not Detected) St Y.enterocolitica PCR (Not Detected) Stool Vibrio (PCR) (Not Detected) Stl Vibrio cholerae PCR (Not Detected) Stl Enteroaggr Ecoli PCR (Not Detected) Stl Norovirus GI/GII PCR (Not Detected) Sepsis Event Note (H) Evaluation Current Stage of Sepsis: Severe sepsis Possible source of Sepsis: positive Genitourinary Sepsis Criteria Sepsis Criteria: Recorded Temperature greater than 38.3C or Less than 36C, WBC count greater than 10% bands, MAP less than 65 mmHg and Renal: urine output less than 0.5ml/kg/hr for 2 hours or creatinine gr Assessment/Plan Problem List (1) Sepsis: (2) Epididymo-orchitis, acute: Impression: Stable and not significantly improved. Fever curve is downtrending. Still with sepsis physiology. His bands are up overnight, but this may be effective IV antibiosis. Blood culture has not yet matured. Recall the patient has been treated in the community with symptoms starting around 04/01. He had fever starting around then as well. He was found to have a significantly swollen right testicle at the walk-in clinic. This is improving. He was treated for right epididymal orchitis. Initially with 1 g Rocephin then Bactrim. His localized symptoms improved. He began right groin prior to admission, and had temperatures up to 104 F. He has been having concurrent diarrhea. MIKE as below. Recall when he was admitted, he was found to have a blood pressure of 88/53. Received IV fluids with improvement. His stool PCR panel was negative. Viral respiratory panel was negative. - Continue ceftriaxone 2 g daily, Levaquin, renally dosed - Fluids as below given MIKE - Continue encourage oral intake - Vitals every 4 hours - Follow-up blood cultures, NGTD (3) MIKE (acute kidney injury): Impression: Relatively bland urine. Quantitative protein at 0.4g. Trace proteinuria. [place] was 1.8% and indeterminate. Urine sodium 74. With his trending creatinine, overall leaning towards this being intrinsic MIKE. Could be ATN from sepsis, less likely AID. Less likely glomerulonephritis with his relatively bland urine. - Will give additional fluid bolus today and start on maintenance fluids - Preference D5 half-normal saline for maintenance fluids. His K has been high. -Trend BMP this afternoon and in a.m. - Continue strict I/O - Avoid nephrotoxins as able - If creatinine not improving or urine output dropping off, may need to transfer for [employer]SULT[employer]. (4) HIV (human immunodeficiency virus infection): Impression: Continues on antiretroviral care. Given his tenuous course so far, we will send out his CD4 count and viral load in preparation for if he clinically worsens Recall he has a longstanding history of HIV on Biktarvy and darunavir. Saw his ID doctor, Dr. Kapil Jimenez, in February. Reports that he remains undetectable. - Continues his home Biktarvy and darunavir - Treating infection as above, vigilance for opportunistic infections - Checking CD4, viral load (5) Hypertension: Impression: History of hypertension. He is on HCTZ, lisinopril, metoprolol prior to his admission. He was hypotensive and septic on presentation. His home antihypertensives were held. (6) Hyperlipidemia: Impression: On atorvastatin 40 mg for primary prevention. Holding statin. Proteus inhibitors and statins can raise the risk of myopathy from statin. Will wait till he is clinically more stable to resume his statin. If he has historically tolerated it, reasonable to continue for now. I spent a total of 52 minutes in the care of this patient today. This time was spent reviewing labs, vital signs, imaging, interviewing and examining the patient, and discussing plan of care with them and their other care providers. Patient is doing with 1 acute illness that poses a threat to life and bodily function. He has MIKE posing risk to his ongoing renal function. Monitoring data as above. Prescription management as above. Discussed his case with case management, plan for 1-2 more days in the hospital. [id number]
[2025-04-10] MEDS: SACCHAROMYCES BOULARDII 250 MG CAPSULE PO SCH (08:34)
[2025-04-10] MEDS: cefTRIAXone 2 GM in SODIUM CHLORIDE 0.9% MINIBAG 100 ML IV SCH (08:34)
[2025-04-10 09:02] LABS: HCT - HEMATOCRIT 41.5 % (42.0-52.0); HGB - HEMOGLOBIN 13.1 g/dL (14.0-18.0); MEAN PLATELET VOLUME 9.8 fL (7.4-11.4); PLT - PLATELET COUNT 135 10^3/uL (130-450); RED CELL DISTRIBUTION WIDTH 13.0 % (12.0-15.0)
[2025-04-10 09:09] LABS: ABNORMAL LYMPHS % (MANUAL) 0 %; BASOPHILS # (MANUAL) 0.0 10^3/uL (0-0.1)
[2025-04-10 09:15] LABS: ALT ALANINE AMINOTRANSFERASE 36.0 IU/L (10-60); AST ASPARTATE AMINOTRANSFERASE 36.0 IU/L (10-42); BUN - BLOOD UREA NITROGEN 45.0 mg/dL (6-20); CARBON DIOXIDE - CO2 16.0 mmol/L (21-32); CREATININE 3.2 mg/dL (0.6-1.3); GFR - MDRD 20.0 (>89)
[2025-04-10 10:36] LABS: BAND NEUTROPHILS % (MANUAL) 34 %; EOSINOPHILS # (MANUAL) 0.4 10^3/uL (0-0.7); LYMPHOCYTES # (MANUAL) 0.3 10^3/uL (1.5-3.5); LYMPHOCYTES % (MANUAL) 4 %; MONOCYTES # (MANUAL) 0.1 10^3/uL (0.0-1.0); NEUTROPHILS # (MANUAL) 7.4 10^3/uL (1.5-6.6)
[2025-04-10 10:38] LABS: WBC MORPHOLOGY (MULTIPLE) 1+ VACUOLATION (NORMAL)
[2025-04-10] MEDS: LACTATED RINGERS 1,000 ML IV ONE (11:35)
[2025-04-10] MEDS ORDERED: D5.45NS W/20 MEQ KCL 1,000 ML IV SCH (12:00)
[2025-04-10] MEDS: DEXTROSE 5%-0.45% NACL 1,000 ML IV ONE (12:40)
[2025-04-10 16:32] LABS: BUN - BLOOD UREA NITROGEN 43.0 mg/dL (6-20); CARBON DIOXIDE - CO2 19.0 mmol/L (21-32); CREATININE 2.8 mg/dL (0.6-1.3); GFR - MDRD 23.0 (>89)
[2025-04-11 05:34] LABS: HCT - HEMATOCRIT 36.0 % (42.0-52.0); HGB - HEMOGLOBIN 12.4 g/dL (14.0-18.0); MEAN PLATELET VOLUME 10.0 fL (7.4-11.4); PLT - PLATELET COUNT 144 10^3/uL (130-450); RED CELL DISTRIBUTION WIDTH 12.8 % (12.0-15.0)
[2025-04-11 05:44] LABS: BASOPHILS # (MANUAL) 0.0 10^3/uL (0-0.1); MONOCYTES # (MANUAL) 0.0 10^3/uL (0.0-1.0)
[2025-04-11 05:55] LABS: BUN - BLOOD UREA NITROGEN 32.0 mg/dL (6-20); CARBON DIOXIDE - CO2 17.0 mmol/L (21-32); CREATININE 2.0 mg/dL (0.6-1.3); GFR - MDRD 34.0 (>89)
[2025-04-11 06:19] LABS: ABNORMAL LYMPHS % (MANUAL) 1 %; BAND NEUTROPHILS % (MANUAL) 9 %; EOSINOPHILS # (MANUAL) 0.4 10^3/uL (0-0.7); LYMPHOCYTES # (MANUAL) 0.4 10^3/uL (1.5-3.5); LYMPHOCYTES % (MANUAL) 4 %; NEUTROPHILS # (MANUAL) 7.7 10^3/uL (1.5-6.6)
[2025-04-11 06:20] LABS: PLATELET ESTIMATE, MANUAL NORMAL (130-450,000) (NORMAL); PLATELET MORPHOLOGY NORMAL APPEARANCE (NORMAL); RBC MORPHOLOGY (MULTIPLE) NORMAL APPEARANCE (NORMAL)
[2025-04-11 06:21] LABS: WBC MORPHOLOGY (MULTIPLE) NORMAL APPEARANCE (NORMAL)
--- NOTE | 2025-04-11 07:30 | PROVIDER PROGRESS NOTE ---
Subjective Prog Note Date Prog Note Date: 04/11/25 Prog Note Time: 07:29 Subjective Subjective: No acute events overnight. Last fever was yesterday at 1829. Tmax 38.1. This morning, normotensive, normal heart rate. Blood cultures still no growth to date. Patient reports he is feeling much better today. He concurs that he has been afebrile since late yesterday. He feels like he is improving. He feels like his orchitis has completely resolved at this time. Denies any dysuria. Denies fevers or chills. Denies chest pain, dyspnea, abdominal pain, nausea or vomiting. His diarrhea seems to have improved to. Last bowel movement was last evening and formed. Met with the patient, his partner Preston, and their neighbor Jerome at bedside. Discussed his plan of care, anticipation for discharge 04/12. Their questions were answered Current Medications Current Medications Current Medications: Current Medications Generic Name Dose Route Start Last Admin Trade Name Freq PRN Reason Stop Dose Admin Acetaminophen 650 mg 04/09/25 12:57 04/10/25 18:01 Acetaminophen 325 Mg Tablet PO 650 mg Q4HR PRN Administration Pain 1 to 4, or Fever Famotidine 20 mg 04/09/25 17:30 04/11/25 06:30 Famotidine 20 Mg Tablet PO 20 mg BIDAC YAJAIRA Administration Heparin Sodium (Porcine) 5,000 unit 04/09/25 21:00 04/10/25 20:13 Heparin 5,000 Unit/Ml Vial SUBQ 5,000 unit BID YAJAIRA Administration Ceftriaxone Sodium 2 gm/ 100 mls @ 200 mls/hr 04/10/25 09:00 04/10/25 11:18 Sodium Chloride IV Infused DAILY YAJAIRA Infusion Levofloxacin 250 mg 04/10/25 09:00 04/10/25 08:34 Levofloxacin 250 Mg Tablet PO 250 mg DAILY YAJAIRA Administration Ondansetron HCl 4 mg 04/09/25 12:57 Ondansetron Odt 4 Mg Tablet TL Q6HR PRN Nausea / Vomiting Ondansetron HCl 4 mg 04/09/25 12:57 Ondansetron 4 Mg/2 Ml Vial IVP Q6HR PRN Nausea / Vomiting Oxycodone HCl 5 mg 04/09/25 12:57 Oxycodone 5 Mg Tablet PO Q4HR PRN Pain 5 to 7 Oxycodone HCl 10 mg 04/09/25 12:57 Oxycodone 5 Mg Tablet PO Q4HR PRN Pain 8 to 10 Patient Own Med: 1 each 04/10/25 08:00 04/10/25 08:34 Bictegrav-Emtricit- PO 1 each Tenofov Ala [ 0800 YAJAIRA Administration Biktarvy] 50-200-25 Mg Tablet Patient Own Med: 1 each 04/10/25 08:00 04/10/25 08:34 Darunavir 800 Mg PO 1 each Tablet QDBREAKFAST YAJAIRA Administration Saccharomyces Boulardii 500 mg 04/10/25 08:00 04/10/25 16:29 Saccharomyces Boulardii 250 Mg Capsule PO 500 mg BIDWM YAJAIRA Administration Sodium Chloride 10 ml 04/09/25 12:57 Sodium Chloride Flush 0.9% 10 Ml Syringe IVP PRN PRN NEEDED PER PROVIDER ORDERS Sodium Chloride 10 ml 04/09/25 17:00 04/10/25 23:50 Sodium Chloride Flush 0.9% 10 Ml Syringe IVP 10 ml 0100,0900,1700 YAJAIRA Administration Objective Vital Signs/Intake & Output Reviewed Vital Signs: Yes Vital Signs: Vital Signs x48h Temp Pulse Resp BP Pulse Ox 04/11/25 04:55 37.2 C 87 16 127/70 96 04/10/25 23:50 37.2 C 92 18 122/56 L 94 Intake & Output: Intake & Output 04/08/25 04/09/25 04/10/25 04/11/25 23:59 23:59 23:59 23:59 Intake Total 480 / 480 4370 / 4370 Output Total 600 / 600 725 / 725 Balance 480 / 480 3770 / 3770 -725 / -725 Weight (kg) 87.5 kg Objective Comments/Other: GEN: No acute distress HEENT: NC/AT, normal appearance of external ears and nose. Hearing baseline. Cardiac: Regular rate and rhythm, no murmurs. Generally euvolemic on exam. Pulm: Lungs CTA bilaterally, no cough, no wheezes. No adventitial lung sounds. Normal effort on room air. Abdomen: Obese, soft, nontender, nondistended. No rebound or guarding Extremities: Moves all 4 extremities equally. Normal tone. : Normal-appearing testicles. Without inflammation, erythema, or tenderness. Neuro: Face symmetric, CN II through XII intact grossly. Speech fluent. Moves all extremities. No focal deficits. Psych: Mood euthymic. Affect congruent. Reasonable historian. Lab Results 04/11/25 05:08 04/11/25 05:08 Other Labs: Lab Results x24hrs 04/11/25 04/10/25 04/10/25 Range/Units 05:08 16:08 08:31 WBC 8.6 8.2 (4.8-10.8) x10^3/uL RBC 3.90 L 4.15 L (4.70-6.10) 10^6/uL Hgb 12.4 L 13.1 L (14.0-18.0) g/dL Hct 36.0 L 41.5 L (42.0-52.0) % MCV 92.3 100.0 H (80.0-94.0) fL MCH 31.8 H 31.6 H (27.0-31.0) pg MCHC 34.4 31.6 L (32.0-36.0) g/dL RDW 12.8 13.0 (12.0-15.0) % Plt Count 144 135 (130-450) 10^3/uL MPV 10.0 9.8 (7.4-11.4) fL Neut # (Auto) Not Reportable Not Reportable Lymph # (Auto) Not Reportable Not Reportable [place] # (Auto) Not Reportable Not Reportable Eos # (Auto) Not Reportable Not Reportable Baso # (Auto) Not Reportable Not Reportable Absolute Nucleated RBC Not Reportable Not Reportable Total Counted 100 100 Band Neuts % (Manual) 9 34 H (0 - 10) % Abnorm Lymph % (Manual) 1 0 % Nucleated RBC % Not Reportable Not Reportable Neutrophils # (Manual) 7.7 H 7.4 H (1.5-6.6) 10^3/uL Lymphocytes # (Manual) 0.4 L 0.3 L (1.5-3.5) 10^3/uL Monocytes # (Manual) 0.0 0.1 (0.0-1.0) 10^3/uL Eosinophils # (Manual) 0.4 0.4 (0-0.7) 10^3/uL Basophils # (Manual) 0.0 0.0 (0-0.1) 10^3/uL Differential Comment MANUAL DIFFERENTIAL MANUAL DIFFERENTIAL WBC Morphology NORMAL APPEARANCE 1+ VACUOLATION (NORMAL) Platelet Estimate NORMAL (130-450,000) (NORMAL) Platelet Morphology NORMAL APPEARANCE (NORMAL) RBC Morph Micro Appear NORMAL APPEARANCE (NORMAL) Sodium 129 L 129 L 130 L (135-145) mmol/L Potassium 4.3 4.2 4.4 (3.5-4.5) mmol/L Chloride 103 101 103 (101-111) mmol/L Carbon Dioxide 17 L 19 L 16 L (21-32) mmol/L Anion Gap 9.0 9.0 11.0 (6-13) BUN 32 H 43 H 45 H (6-20) mg/dL Creatinine 2.0 H 2.8 H 3.2 H (0.6-1.3) mg/dL Estimated GFR (MDRD) 34 L 23 L 20 L (>89) Glucose 109 H 112 H 144 H (74-104) mg/dL Lactic Acid 1.4 (0.5-2.2) mmol/L Calcium 8.3 L 8.0 L 7.9 L (8.5-10.3) mg/dL Total Bilirubin 0.5 (0.2-1.0) mg/dL AST 36 (10-42) IU/L ALT 36 (10-60) IU/L Alkaline Phosphatase 65 (42-121) IU/L Total Protein 5.9 L (6.4-8.9) g/dL Albumin 3.4 (3.2-5.5) g/dL Globulin 2.5 (2.1-4.2) g/dL Albumin/Globulin Ratio 1.4 (1.0-2.2) Sepsis Event Note (H) Evaluation Current Stage of Sepsis: Severe sepsis Possible source of Sepsis: positive Genitourinary Sepsis Criteria Sepsis Criteria: Recorded Temperature greater than 38.3C or Less than 36C, WBC count greater than 10% bands, MAP less than 65 mmHg and Renal: urine output less than 0.5ml/kg/hr for 2 hours or creatinine gr Assessment/Plan Problem List (1) Sepsis: (2) Epididymo-orchitis, acute: Impression: Intervally continues to improve. Defervescence since 1800 on 04/10. No longer with septic physiology. Pulses normal. BP remains robust. Remains without leukocytosis. Bandemia has resolved. Recall the patient has been treated in the community with symptoms starting around 04/01. He had fever starting around then as well. He was found to have a significantly swollen right testicle at the walk-in clinic. This is improving. He was treated for right epididymal orchitis. Initially with 1 g Rocephin then Bactrim. His localized symptoms improved. He began right groin prior to admission, and had temperatures up to 104 F. He has been having concurrent diarrhea. MIKE as below. Recall when he was admitted, he was found to have a blood pressure of 88/53. Received IV fluids with improvement. His stool PCR panel was negative. Viral respiratory panel was negative. The CDC notes that while HIV-positive men should receive standard treatment,o ther etiologic agents have been implicated in this population, including CMV, salmonella, toxoplasmosis,Ureaplasma urealyticum,Corynebacteriumspecies,Mycoplasmaspecies, andMima polymorpha. If the patient fails to respond to standard therapy, these alternative pathogens should be considered and further evaluation pursued. - Continue ceftriaxone 2 g daily, Levaquin, renally dosed - Continue Florastor on antibiotics - Vitals every 4 hours - Follow-up blood cultures, NGTD - If culture negative tomorrow will dc with single dose of IM CTX and complete levaquin for 10 days - EOT 04/19 (3) MIKE (acute kidney injury): Impression: Continues to intervally improved. Suspect this was all ATN in the setting of sepsis. Improving with treatment of infection as above. Tiki was 1.8% and indeterminate. Urine sodium 74. With his trending creatinine, overall leaning towards this being intrinsic MIKE. Differential includes ATN from sepsis. Less likely glomerulonephritis with his relatively bland urine. - Repeat BMP in a.m. - Continue strict I/O - Encourage oral hydration - Avoid nephrotoxins as able (4) HIV (human immunodeficiency virus infection): Impression: Continues on antiretroviral care. Given his tenuous course so far, we will send out his CD4 count and viral load in preparation for if he clinically worsens Recall he has a longstanding history of HIV on Biktarvy and darunavir. Saw his ID doctor, Dr. Kapil Jimenez, in February. Reports that he remains undetectable. - Continues his home Biktarvy and darunavir - CD4 and viral load were sent out on 04/10 given his initial nonresponse. Continue to follow (5) Hypertension: Impression: History of hypertension. He is on HCTZ, lisinopril, metoprolol prior to his admission. He was hypotensive and septic on presentation. His home antihypertensives were held. - Continue holding HCTZ, lisinopril, Toprol (6) Hyperlipidemia: Impression: On atorvastatin 40 mg for primary prevention. Holding statin. Proteus inhibitors and statins can raise the risk of myopathy from statin. Will wait till he is clinically more stable to resume his statin. If he has historically tolerated it, reasonable to continue for now. I spent a total of 53 minutes in the care of this patient today. This time was spent reviewing labs, vital signs, imaging, interviewing and examining the patient, and discussing plan of care with them and their other care providers. Patient is doing with 1 acute illness that poses a threat to life and bodily function. He has MIKE posing risk to his ongoing renal function, improving. Monitoring data as above. Prescription management as above. On drug therapy requiring monitoring for toxicity with Susan. Discussed his case with case management, hopefully discharge tomorrow. [id number]
[2025-04-11 20:17] VITALS: O2SAT 97
[2025-04-12 05:38] LABS: HCT - HEMATOCRIT 33.7 % (42.0-52.0); HGB - HEMOGLOBIN 11.1 g/dL (14.0-18.0); MEAN PLATELET VOLUME 9.8 fL (7.4-11.4); PLT - PLATELET COUNT 136 10^3/uL (130-450); RED CELL DISTRIBUTION WIDTH 12.7 % (12.0-15.0)
[2025-04-12 05:42] LABS: BASOPHILS # (MANUAL) 0.0 10^3/uL (0-0.1)
[2025-04-12 05:50] LABS: BUN - BLOOD UREA NITROGEN 26.0 mg/dL (6-20); CARBON DIOXIDE - CO2 19.0 mmol/L (21-32); CREATININE 1.5 mg/dL (0.6-1.3); GFR - MDRD 47.0 (>89)
[2025-04-12 06:46] LABS: ABNORMAL LYMPHS % (MANUAL) 3 %; BAND NEUTROPHILS % (MANUAL) 3 %; EOSINOPHILS # (MANUAL) 0.4 10^3/uL (0-0.7); LYMPHOCYTES # (MANUAL) 1.0 10^3/uL (1.5-3.5); LYMPHOCYTES % (MANUAL) 16 %; MONOCYTES # (MANUAL) 0.3 10^3/uL (0.0-1.0); NEUTROPHILS # (MANUAL) 3.6 10^3/uL (1.5-6.6)
[2025-04-12 06:47] LABS: PLATELET ESTIMATE, MANUAL NORMAL (130-450,000) (NORMAL); PLATELET MORPHOLOGY NORMAL APPEARANCE (NORMAL); RBC MORPHOLOGY (MULTIPLE) NORMAL APPEARANCE (NORMAL); WBC MORPHOLOGY (MULTIPLE) 1+ TOXIC GRANULATION (NORMAL)
--- NOTE | 2025-04-12 08:27 | Discharge Summary ---
"Discharge Summary Admit Date: 04/09/25 Discharge Date: 04/12/25 Discharging Provider: Leobardo Wiggins Primary Care Provider: Franky Cobb Code Status: Attempt Resuscitation Discharge Facility Name: Home DIAGNOSES Discharge Diagnoses with Status of Each Condition: ## Sepsis, resolved ## Epididymo-orchitis, improving Recall the patient has been treated in the [facility] with sxs starting around 04/01. He had fever starting around then as well. He was found to have a significantly swollen right testicle at the walk-in clinic. He was treated for right epididymal orchitis. Initially with 1 g Rocephin then Bactrim. His pain and swelling symptoms improved. He began right groin prior to admission, and had temperatures up to 104 F. He has been having concurrent diarrhea. MIKE as below. Recall when he was admitted, he was found to have a blood pressure of 88/53. Received IV fluids with improvement. His stool PCR panel was negative. Viral respiratory panel was negative. Received CTX IV while inpatient. By guideline for MSM population, additionally 10 days of oral levaquin. Intervally continues to improve. Defervescence since 1800 on 04/10. No longer with septic physiology. Pulses normal. BP remains robust. Remains without leukocytosis. Bandemia has resolved. [place] well on day of discharge. The CDC notes that while HIV-positive men should receive standard treatment,o ther etiologic agents have been implicated in this population, including CMV, salmonella, toxoplasmosis,Ureaplasma urealyticum,Corynebacteriumspecies,Mycoplasmaspecies, andMima polymorpha. If the patient fails to respond to standard therapy, these alternative pathogens should be considered and further evaluation pursued. - Complete 10 days levaquin, EOT ~04/18 - Continue Florastor while on antibiotics - Blood cultures negative this admission will be monitored for 5 days. ## MIKE (acute kidney injury), resolved Cr 1.5 at discharge. Patient believes this is around his baseline. He follows with nephrologyTristan. Suspect this was all ATN in the setting of sepsis. Improving with treatment of infection as above. FeNa was 1.8% and indeterminate. Urine sodium 74. With his trending creatinine, overall leaning towards this being intrinsic MIKE. - Repeat BMP in 1-2 weeks - Encourage oral hydration ## HIV (human immunodeficiency virus infection), Chronic, stable Continues on antiretroviral care. With slow improvement in his infection, consideration for opportunistic infections was made. CD4 count is a send out for our lab but has returned by discharge at 450. HIV viral load pending. Recall he has a longstanding history of HIV on Biktarvy and darunavir. Saw his ID doctor, Dr. Kapil Jimenez, in February. Reports that he remains undetectable. - Continues his home Biktarvy and darunavir - Patient to notify Dr. Jimenez of his recent infection and hospitalization ## Hypertension, stable History of hypertension. He is on HCTZ, lisinopril, metoprolol prior to his admission. He was hypotensive and septic on presentation. His blood pressure was robust at time of discharge. - Resuming home antihypertensives ## Hyperlipidemia, chronic On atorvastatin 40 mg for primary prevention. Statin held this admission. Protease inhibitors and statins can raise the risk of myopathy from statin, oftentimes dose capped at 20mg. He says he does not have issues with myopathy, however. - Resume statin at discharge HPI History of Present Illness: The patient is a 60-year-old male with past medical history notable for HIV on HAART, HTN, HLD who presented with fever on antibiotics and hypotension. He was initially diagnosed with or orchio-epididymitis on 04/03 at urgent care. He was treated with IM Rocephin, returned and was transition to Bactrim. He states his symptoms have gotten significantly better. Specifically he had swelling in his left testicle that is improved. Throughout this time, he has been having intermittent low-grade fevers. Worse on the day prior to admission. He recorded a fever at home up to 104. He did have an episode of diarrhea on the day of admission. He endorses rigors, the most recent on 04/08. Shaking chills at home. Otherwise denies chest pain, dyspnea, abdominal pain, nausea or vomiting. In the ED, he presented initially with a blood pressure of 80/53. Not tachycardic. He reports that he did take his blood pressure medicines on the day of admission. He was found to have a notably normal white count, down from 18.7 on 04/03. He does have a left shift with 15% bands. Potassium 4.8, creatinine presumably normal at baseline was 1.6 on 04/03, increased 3.5. BUN 39. PCL 0.72. BG 108. Viral respiratory panel was negative. Urinalysis not suggestive of infection. Patient has not given much thought to his CODE STATUS previously. He is never filled out a POLST form. He does think that he would elect for pursuing resuscitative efforts if his heart were to stop. He is full code full treatment, but wishes to further consider. His surrogate decision maker is his Preston, Preston's numbers in the chart. Perston is also his legal surrogate decision maker by [facility] law. CONSULTS | PROCEDURES Consultations: None Procedures: CXR HOSPITAL COURSE Hospital Course: Patient was admitted for treatment of his infection. He had blood cultures that remained no growth. He had attendant MIKE thought to be ATN from sepsis. He was started on guideline based treatment for epididymoorchitis in an MSM population with ceftriaxone and levaquin. Levaquin needed renal dosing initially given his MIKE which has resolved by day of discharge. On initial presentation, the patient's blood pressures were soft. Consideration for pressors was made. He received aggressive fluid resuscitation, and his blood pressures normalized. He received 3+ liters of fluid in the ED. His antihypertensives were held in the early part of this hospitalization, but by day of discharge, his systolic is in the 150s. Blood pressure medicines were resumed on discharge. He had persistent fevers and septic physiology for the first 36 hours of hospitalization. He never had a leukocytosis, but he had a significant bandemia that went from 15% to 34% bands. This resolved by 04/11, along with his fevers. Remained stable for 24 hours prior to discharge. On day of discharge his pain and scrotal swelling have completely resolved. Patient was seen and evaluated and feels like he is back to his baseline. He feels healthy and well. His blood pressures which were drawn on admission will be monitored for 5 days, NGTD. Discussed with pharmacy, no further need for CTX post discharge. He will complete levaquin for an additional 6 days to complete 10 day course. Sent to his pharmacy along with probiotic for the duration + 4 days following. Patients partner and his neighbor each had questions which were answered. He needs follow-up with his primary care doctor in the next 1 to 2 weeks with repeat BMP at that time to ensure resolution of his MIKE. Follow-up on his symptoms and ensure that he continues to feel well. ALLERGIES Allergies Allergy/AdvReac Type Severity Reaction Status Date / Time No Known Drug Allergies Allergy Verified 04/09/25 11:00 MEDICATIONS Ambulatory Orders Medication Instructions Recorded Confirmed hydrochlorothiazide 25 mg tablet 25 mg PO QAM 04/03/25 04/09/25 lisinopril 20 mg tablet 20 mg PO QDAY 04/03/2504/09 amlodipine 10 mg tablet 10 mg PO QPM 04/09/25 ascorbic acid (vitamin C) 1,000 mg 1,000 mg PO DAILY 1 06/09/24 04/09/25 capsule atorvastatin 20 mg tablet 20 mg PO HS 04/09/25 5 bictegravir 50 mg-emtricitabine 1 tab PO QAM 04/09/25 04/09/25 200 mg-tenofovir alafenam 25 mg tablet (Biktarvy) chlorthalidone 12.5 mg tablet 12.5 mg PO QAM 04/09/25 04/09/25 (Hemiclor) darunavir 800 mg tablet 800 mg PO QAM 04/09/2504/09 doxazosin 2 mg tablet (Cardura) 2 mg PO QPM 04/09/25 1 06/09/24 famotidine 20 mg tablet 20 mg PO QAM AND QPM 5 04/09/25 furosemide 20 mg tablet 20 mg PO QAM 04/09/25 metoprolol succinate 50 mg capsule 100 mg PO QPM 04/0904/09/25 sprinkle, ext. release 24 hr metronidazole 0.75 % topical cream 1 applic topical BI D 04/09/25 04/09/25 multivitamin 1 tab PO DAILY 04/09/2503/16 Saccharomyces boulardii 250 mg 250 mg PO BID 10 days # 20 caps 04/12/25 capsule (Florastor) levofloxacin 500 mg tablet 500 mg PO DAILY #6 tabs PHYSICAL EXAM AT DISCHARGE Vital Signs: Vital Signs x48h Temp Pulse Resp BP Pulse Ox 04/12/25 12:40 36.6 C 87 18 152/76 H 97 LABS 04/12/25 04:54 04/12/25 04:54 DIAGNOSTIC IMAGING Diagnostic Imaging Results: Final report reviewed and Read independently Diagnostic Imaging Results Comments: CXR from 04/09: No acute cardiopulmonary process SEPSIS Current Stage of Sepsis: Severe sepsis Possible source of Sepsis: Genitourinary Sepsis Criteria: Recorded Temperature greater than 38.3C or Less than 36C, WBC count greater than 10% bands, MAP less than 65 mmHg and Renal: urine output less than 0.5ml/kg/hr for 2 hours or creatinine gr FOLLOW UP Follow Up: Follow-up with primary care doctor in the next 1 to 2 weeks with repeat BMP Notify infectious disease doctor of recent hospitalization. TIME SPENT Time Spent in Discharge (Minutes): 43 Discharge Plan Discharge Patient Disposition: Home, Self Care Condition: Good Medically Cleared Date:: 04/12/25 Prescriptions: New levofloxacin 500 mg tablet 500 mg PO DAILY Qty: 6 0RF Rx Instructions: To start 04/13 Saccharomyces boulardii [Florastor] 250 mg capsule 250 mg PO BID 10 Days Qty: 20 0RF Rx Instructions: Take while on abx + 4 days following for prevention of C. Diff Colitis Continued atorvastatin 20 mg tablet 20 mg PO HS amlodipine 10 mg tablet 10 mg PO QPM Patient Comments: TAKE 1 TABLET BY MOUTH ONCE DAILY furosemide 20 mg tablet 20 mg PO QAM metronidazole 0.75 % cream 1 applic TOPICAL BID multivitamin Tablet 1 tab PO DAILY ascorbic acid (vitamin C) 1,000 mg capsule 1,000 mg PO DAILY famotidine 20 mg tablet 20 mg PO QAM AND QPM doxazosin [Cardura] 2 mg tablet 2 mg PO QPM darunavir 800 mg tablet 800 mg PO QAM Rx Instructions: must administer with a meal/food metoprolol succinate 50 mg capsule,sprinkle,ER 24hr 100 mg PO QPM Biktarvy 50-200-25 mg tablet 1 tab PO QAM Hemiclor 12.5 mg tablet 12.5 mg PO QAM lisinopril 20 mg tablet 20 mg PO QDAY hydrochlorothiazide 25 mg tablet 25 mg PO QAM Discontinued sulfamethoxazole-trimethoprim [Bactrim DS] 800-160 mg tablet 1 tab PO BID 10 Days Qty: 20 0RF Activity Restrictions: Activity as Tolerated Diet: Regular Health Concerns: You were admitted for suspected systemic infection from your groin infection (epididymoorchitis). You were treated during this hospitalization with IV antibiotics and oral antibiotics. Your labs have improved. You are feeling better. You are now ready to go home, but it is very important that you follow these instructions carefully to ensure complete recovery. Medications * Continue taking all antibiotics exactly as prescribed, even if you start feeling better. * Stopping antibiotics early can cause the infection to come back or lead to antibiotic resistance. Your antibiotic regimen has been selected based on the likely cause of your infection and includes Levofloxacin 500 mg by mouth once daily for 10 day total course, you will start this on 04/13. You got your 4th dose on your day of discharge. Take all medications with food if they cause stomach upset. Set phone reminders to help you remember to take your medications on time. Activity and Self-Care * Rest as much as possible for the first few days after discharge * Your testical swelling has improved, but you may elect to elevate your scrotum when lying down or sitting by placing a rolled towel underneath itthis helps reduce swelling and pain * Wear supportive underwear (like briefs or an athletic supporter) to provide scrotal support * Apply ice packs wrapped in a towel to the affected area for 15-20 minutes at a time to reduce swelling * Avoid heavy lifting, strenuous exercise, and sexual activity until cleared by your doctor * You may take [id number] pain relievers like acetaminophen as directed for discomfort Warning Signs - When to Seek Immediate Medical Attention Call 911 or go to the emergency department immediately if you experience: * Fever of 101F (38.3C) or higher * Severe or worsening scrotal pain * Increasing redness, warmth, or swelling of the scrotum * Difficulty urinating or inability to urinate * Nausea and vomiting * Confusion or extreme weakness Follow-Up Care You must follow up with your doctor within 1 week of discharge. This is critical to ensure your infection is improving. Your symptoms should start getting better within 2-3 days of starting antibiotics. If they do not improve, you need to be reevaluated. Complete resolution of discomfort may take several weeks after finishing your antibiotics. Some tenderness and mild swelling can persist even after the infection is treated. If swelling and tenderness continue after you complete all your antibiotics, you will need further evaluation to rule out other conditions. You should let your infectious disease doctor know you are in the hospital with an infection. Prevention To prevent future infections: - Practice safe sex by using condoms consistently and correctly if sexually transmitted infection was the cause of your infection - Avoid sexual activity until you and your partner(s) have completed treatment - Stay well-hydrated and urinate regularly; do not hold your urine for long periods - Practice good genital hygiene Important Reminders * Do not stop your antibiotics early even if you feel completely better * Keep all follow-up appointments * If you have questions or concerns before your follow-up appointment, call your doctor's office * Avoid alcohol while taking antibiotics, especially if taking metronidazole or certain other medications Print Language: Liberian Patient Instructions: Levofloxacin, Treating Epididymitis and Orchitis Follow-up Care: FRANKY COBB MD [Primary Care Provider, Family Practice] Kapil Jimenez MD [Physician No Access, Infectious Disease] Vitals documented within 30 minutes of discharge?: Yes (Yes)"
[2025-04-12] MEDS ORDERED: LIDOCAINE 1% 2 ML VIAL MC STA (08:40)
[2025-04-12] MEDS ORDERED: cefTRIAXone 500 MG VIAL IM ONE (09:00)
[2025-04-12 09:08] LABS: % CD 4 POS. LYMPH. 64.8 % (30.8-58.5); ABSOLUTE CD 4 HELPER 454.0 /uL (359-1519)
[2025-04-12 13:20] VITALS: BP 152/76; TEMP 97.9
[2025-04-14 15:09] LABS: HIV-1 RNA BY PCR QUANT 20.0 copies/mL (.); HIV-1 RNA LOG10 1.301 (.)
== END 2025-04-12 13:10 | disposition home or self-care (01) | DRG 871 ==
LOC: ED 10:58 → MS2 12:17
PROVIDERS: ADMIT Student in an Organized Health Care Education/Training Program; ATTEND Student in an Organized Health Care Education/Training Program